=== PATIENT | female | born 2000 | race Two or more races ===

== ENCOUNTER 2025-01-26 15:58 | Emergency (ER) | payer OTHER ==
[2025-01-26 16:06] VITALS: TEMP 98.1; BMI 27.4
[2025-01-26 17:27] LABS: URINE APPEARANCE CLEAR; URINE BILIRUBIN NEGATIVE (NEGATIVE); URINE COLOR YELLOW; URINE GLUCOSE (UA) NEGATIVE (NEGATIVE); URINE KETONE NEGATIVE (NEGATIVE); URINE LEUK ESTERASE NEGATIVE (NEGATIVE); URINE NITRITE NEGATIVE (NEGATIVE); URINE PROTEIN NEGATIVE (NEGATIVE); URINE UROBILINOGEN 1.0 mg/dL (0.2-1.0)
[2025-01-26 17:58] LABS: ABSOLUTE IMMATURE GRANULOCYTES 0.04 x10^3/uL (0.0-0.031); BASOPHILS # 0.03 x10^3/uL (0.01-0.08); EOSINOPHIL % 1.2 % (0.7-5.8); EOSINOPHILS # 0.12 x10^3/uL (0.04-0.36); MCHC 32.6 g/dl (32.2-35.5); MEAN CELL VOLUME 93.7 fl (79.4-94.8); MEAN PLT VOLUME 10.2 fl (9.4-12.3); MONOCYTE # 0.95 x10^3/uL (0.24-0.86); MONOCYTE % 9.3 % (4.7-12.5); RDW 11.3 % (12.1-16.5)
[2025-01-26 18:19] LABS: GLUCOSE,RANDOM 86.0 mg/dL (74-106)
[2025-01-26 18:20] LABS: CO2 25.0 mmol/L (21-32)
[2025-01-26 18:22] LABS: CREATININE 0.9 mg/dL (0.55-1.3); SGPT/ALT 21.0 U/L (13-61)
[2025-01-26 18:23] LABS: SGOT/AST 12.0 U/L (15-37)
[2025-01-26 18:24] LABS: TOT PROT 6.7 g/dl (6.4-8.2)
[2025-01-26 18:25] LABS: ALK PHOS 39.0 U/L (45-117)
[2025-01-26 19:10] LABS: HCV DIAGNOSTIC IN-HOUSE W/RFLX NON-REACTIVE (NONREACTIVE); HIV INTERPRETATION NEGATIVE (NEGATIVE)
[2025-01-26] MEDS ORDERED: ACETAMINOPHEN INJECTION 100 ML ONE (19:41)
[2025-01-26] MEDS: SODIUM CHLORIDE 0.9% 500 ML INFUS.BAG IV ONE (19:48)
[2025-01-26] MEDS: ACETAMINOPHEN 1000 MG/100 ML BAG IVPB ONE (19:48)
[2025-01-26 19:59] VITALS: BP 117/65; PULSE 73; RESP 14
== END 2025-01-26 22:14 | disposition home or self-care (01) ==
LOC: JER 15:58
PROC: 3E033NZ Introduction of Analgesics, Hypnotics, Sedatives into Peripheral Vein, Percutaneous Approach (ICD-10-PCS; principal; 2025-01-26)
DX: D25.9 Leiomyoma of uterus, unspecified (principal); N83.201 Unspecified ovarian cyst, right side; R10.31 Right lower quadrant pain
CPT/HCPCS: 36415; 74177-TC; 76830-TC; 80053; 81003; 83690; 84703; 85025; 86803; 87086; 87389; 99285-25; Q9967